=== PATIENT | male | born 1990 | race Two or more races ===

== ENCOUNTER 2023-12-16 14:07 | Inpatient (IN) ==
[2023-12-16] MEDS: HYDROmorphone INJ 1 MG/ML SYRINGE ONE (14:24)
[2023-12-16 14:43] LABS: iSTAT Creatinine 2.9 mg/dl (0.6-1.3); iSTAT Hemoglobin 18.7 g/dl (14.0-18.0); iSTAT Ionized Calcium 1.15 mmol/l (1.12-1.32); iSTAT Potassium 3.6 mmol/L (3.3-5.0)
[2023-12-16] MEDS: LACTATED RINGER'S 1,000 ML IV ONE ×2 (14:47→15:41)
[2023-12-16] MEDS: SODIUM CHLORIDE 0.9% 1,000 ML IV ONE (14:47)
[2023-12-16] MEDS: MAGNESIUM SULFATE / D5W 1 GM/100 ML BAG IV SCH (14:49)
[2023-12-16] MEDS: HYDROmorphone INJ 1 MG/ML SYRINGE IV STA (15:00)
--- NOTE | 2023-12-16 15:18 | Emergency Department Note ---
Impression & Plan Exertional heat stroke, Hypercalcemia, PAYTON (acute kidney injury), Dehydration ED Provider Note NAME: DANIEL HAWKINS AGE: 33 SEX: M : 1990 ARRIVES VIA: Walk-In INFORMANT: Patient, ED PROVIDER(S): Jimmy Doty MD CHIEF COMPLAINT: Trauma alert HPI: This is a 33-year-old male presenting as suspected trauma alert. Patient Urdu-speaking only is [place] by a friend who also does not speak Romansh. 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 He was diaphoretic, moaning in pain. Bedside fast was performed showing no intra-abdominal fluid, pneumothorax or pericardial effusion. Shortly afterwards, seismic interpreter service was available and was found the patient did not actually fall off a roof. He had no trauma and has no traumatic injuries. He notes he has been outside all day working in the extreme heat. He noted he felt cramping in his entire body that so he came to the ER. He was able to get off the roof when he for started noticing cramping and did not fall at all today ROS: See above HPI for pertinent positives & negatives. A total of 10 systems reviewed and were otherwise negative. PHYSICAL EXAMINATION: General: Extreme discomfort due to pain, extremely diaphoretic Head: Normocephalic and atraumatic Eyes: Normal inspection, extraocular muscles intact Ear, nose, throat: Normal external exam Neck: Normal range of motion Respiratory: lungs clear to auscultation bilaterally Cardiovascular: Tachycardic, regular rate/rhythm, no murmur GI: soft, nontender, no guarding or rebound Extremities: Bilateral lower extremity tenderness, muscle spasm, 2+ pulses in all extremities Neuro: The patient awake and alert, appropriately conversive, no focal deficits, symmetric faces Skin: Warm, dry, and intact MEDICAL DECISION MAKING: This is a 33-year male presenting extremis. Patient is decided as a trauma alert, later discovered patient was working outside all day with body cramps. He is slightly hypothermic to 38.2. He was initially tachycardic into the 150s. Patient was started on 1 L normal saline, 1 L LR. He was given 1 mg of Dilaudid. -E fast performed myself showing no intra-abdominal fluid, pneumothorax or pericardial effusion -Patient notes significant proved in symptoms after a few minutes. His heart rate goes from 150 down to 90s. Blood pressures 170s. He notes his legs are starting feel better. He is no longer writhing in the stretcher. Diaphoresis improving. -Patient continued reevaluated and notes only improving symptoms, now heart rates in the 80s, resting comfortably, sleeping, normal oxygen level at this time. No longer tachypneic -Patient lactic acid was significant elevated over 13. -Patient mentioned that he took 2 pills prior to working because he felt "dizzy ". He cannot, what this is and is asking his friends to take a picture at home so that they can show us what it is. -Patient is reassessed with only improvement in symptoms. Now he states he feels much relaxed rate is down to the 70s/80s, no current pain. -Blood work is reviewed showing significant abnormalities including significant PAYTON to 2.8. Leukocytosis is noted to 16.2 with hemoglobin 19.1 concerning for hemoconcentration. Otherwise his electrolytes are abnormal including hypochloremia, significant anion gap over 29. His calcium is significantly elevated at 12.1. -Will continue to give fluids including third liter of fluid at this time. Temperature is downtrending. CK is only 216. -Updated the patient and he is comfortable with admission due to his PAYTON, dehydration Differential diagnosis: Trauma, dehydration, heatstroke, rhabdomyolysis, electro disturbance, hypocalcemia, tetany ER treatment provided: See below Diagnostics interpreted by me: ECG: ECG independently interpreted by me with normal sinus rhythm, rate of 82, normal axis, normal WA, normal QRS, normal QTc, no ST segment elevations consistent with STEMI criteria Cardiac Monitoring: An order was placed for continuous cardiac monitoring. The monitor shows a rate of 141 with sinus tachycardia rhythm. Laboratory studies: As stated above and show below. Imaging studies: See below. Critical Care Note: I have personally spent 61 minutes of critical care time in the direct management of this patient. This includes bedside care, interpretation of diagnostic studies, and testing, discussion with consultants, patient, and family members, and other required patient management activities. This 61 minutes is in excess of all separately billable procedures. Past Med/Surg History Problem List (Updated 12/16/23 @ 17:00 by Jimmy Doty MD) Dehydration (Acute) PYATON (acute kidney injury) (Acute) Hypercalcemia (Acute) Exertional heat stroke (Acute) Social History Smoking Status: Never smoker Preferred Language: Urdu Feels Safe at Home: Yes Allergies Allergies Allergy/AdvReac Type Severity Reaction Status Date / Time No Known Allergies Allergy Verified 12/16/23 15:01 Home Meds Home Medications Medication Instructions Recorded Confirmed aspirin-caffeine 500 mg-32.5 mg 2 tab PO DIRECTED PRN Pain 12/16/23 12/16/23 tablet (Back and Body Pain Reliever) Results & Data (ED) Vital Signs Vital Signs - 24 hr 12/16/23 14:30 12/16/23 14:33 12/16/23 14:36 Temperature 38.1 C H Temperature Source Rectal Pulse Rate 111 H 120 H Pulse Rate [Right Finger] Pulse Rate from SpO2 Sensor 112 H Pulse Rhythm [Right Finger] Pulse Strength [Right Finger] Respiratory Rate 24 32 H Respiratory Effort / Characteristics Non-Labored Spontaneous Respiratory Depth Normal Respiratory Pattern Regular Blood Pressure 131/94 170/116 H Blood Pressure [Left Arm] Blood Pressure Mean 106 134 Blood Pressure Mean [Left Arm] Blood Pressure Position [Left Arm] Pulse Oximetry 98 98 Oxygen Delivery Method Room Air Room Air Room Air Sepsis Recent Fever Within 48 Hours No Sepsis New/Unexplained Change in Mental Status N/A Sepsis Action Taken by Nursing Physician Notified 12/16/23 14:47 12/16/23 15:05 12/16/23 15:21 Temperature 36.6 C Temperature Source Oral Pulse Rate 95 H Pulse Rate [Right Finger] 75 Pulse Rate from SpO2 Sensor Pulse Rhythm [Right Finger] Regular Pulse Strength [Right Finger] Normal Respiratory Rate 20 Respiratory Effort / Characteristics Non-Labored Spontaneous Respiratory Depth Normal Respiratory Pattern Regular Blood Pressure Blood Pressure [Left Arm] 141/87 H Blood Pressure Mean Blood Pressure Mean [Left Arm] 105 Blood Pressure Position [Left Arm] Semi-fowlers Pulse Oximetry 99 99 Oxygen Delivery Method Room Air Room Air Sepsis Recent Fever Within 48 Hours Sepsis New/Unexplained Change in Mental Status Sepsis Action Taken by Nursing Laboratory Data 12/16/23 14:26 12/16/23 14:26 Lab Results 12/16/23 12/16/23 12/16/23 Range/Units 14:24 14:26 14:30 WBC 16.42 H (4.8-10.8) K/ul RBC 6.50 H (4.70-6.10) M/uL Hgb 19.1 H (14.0-18.0) g/dl POC Hgb 18.7 H (14.0-18.0) g/dl Hct 55.6 H (42.0-52.0) % POC Hct 55 H (42-52) % MCV 85.5 (80.0-100.0) fL MCH 29.4 (25.0-34.0) pg MCHC 34.4 (32.0-36.0) g/dL RDW Std Deviation 38.1 (36.4-46.3) fL RDW Coeff of Fadia 12.5 (11.5-14.5) % Plt Count 365 (130-400) K/uL MPV 10.7 (9.4-12.4) fL Immature Gran % (Auto) 0.5 % Neut % (Auto) 56.8 % Lymph % (Auto) 32.0 % [place] % (Auto) 9.3 % Eos % (Auto) 0.7 % Baso % (Auto) 0.7 % Neut # (Auto) 9.35 H (1.40-6.50) K/uL Lymph # (Auto) 5.25 H (1.20-3.40) K/uL [place] # (Auto) 1.52 H (0.11-0.59) K/uL Eos # (Auto) 0.11 (0.00-0.50) K/uL Baso # (Auto) 0.11 (0.00-0.20) K/uL Immature Gran # (Auto) 0.08 (0.01-0.20) K/uL POC Sodium 137 (135-144) mmol/L Sodium 139 (136-145) mmol/L POC Potassium 3.6 (3.3-5.0) mmol/L Potassium 3.7 (3.5-5.1) mmol/L POC Chloride 99 L (101-112) mmol/L Chloride 90 L (98-107) mmol/L Carbon Dioxide 20 L (21-32) mmol/L POC Total CO2 19 L (24-31) mmol/L Anion Gap 29 H (3-11) POC Anion Gap 24.0 (16-25) mmol/L POC BUN 23 H (7-18) mg/dl BUN 23 (6-23) mg/dl Creatinine 2.81 H (0.6-1.4) mg/dl POC Creatinine 2.9 H (0.6-1.3) mg/dl Est Cr Clr Drug Dosing 31.9 ml/min Est GFR ( Amer) 32.3 ml/min Est GFR (Non-Af Amer) 27.8 ml/min BUN/Creatinine Ratio 8.2 L (10-20) Glucose 141 H (70-99(Fasting)) mg/dl POC Glucose (other) 150 H (70-99) mg/dl Lactate 13.2 H* (0.4-2.0) mmol/L Calcium 12.1 H* (8.6-10.3) mg/dl POC Ioniz Calcium Kya 1.15 (1.12-1.32) mmol/l Magnesium 2.2 (1.7-2.4) mg/dl Total Bilirubin 1.6 H (0.2-1.0) mg/dl Direct Bilirubin 0.2 (0-0.2) mg/dl AST 50 H (13-39) U/L ALT 41 (7-52) U/L Alkaline Phosphatase 148 H (34-104) U/L Total Creatine Kinase 216 (30-223) U/L Total Protein 10.7 H (6.0-8.3) gm/dl Albumin 6.6 H (3.4-5.0) gm/dl 12/16/23 Range/Units 16:30 WBC (4.8-10.8) K/ul RBC (4.70-6.10) M/uL Hgb (14.0-18.0) g/dl POC Hgb (14.0-18.0) g/dl Hct (42.0-52.0) % POC Hct (42-52) % MCV (80.0-100.0) fL MCH (25.0-34.0) pg MCHC (32.0-36.0) g/dL RDW Std Deviation (36.4-46.3) fL RDW Coeff of Fadia (11.5-14.5) % Plt Count (130-400) K/uL MPV (9.4-12.4) fL Immature Gran % (Auto) % Neut % (Auto) % Lymph % (Auto) % [place] % (Auto) % Eos % (Auto) % Baso % (Auto) % Neut # (Auto) (1.40-6.50) K/uL Lymph # (Auto) (1.20-3.40) K/uL [place] # (Auto) (0.11-0.59) K/uL Eos # (Auto) (0.00-0.50) K/uL Baso # (Auto) (0.00-0.20) K/uL Immature Gran # (Auto) (0.01-0.20) K/uL POC Sodium (135-144) mmol/L Sodium (136-145) mmol/L POC Potassium (3.3-5.0) mmol/L Potassium (3.5-5.1) mmol/L POC Chloride (101-112) mmol/L Chloride (98-107) mmol/L Carbon Dioxide (21-32) mmol/L POC Total CO2 (24-31) mmol/L Anion Gap (3-11) POC Anion Gap (16-25) mmol/L POC BUN (7-18) mg/dl BUN (6-23) mg/dl Creatinine (0.6-1.4) mg/dl POC Creatinine (0.6-1.3) mg/dl Est Cr Clr Drug Dosing ml/min Est GFR ( Amer) ml/min Est GFR (Non-Af Amer) ml/min BUN/Creatinine Ratio (10-20) Glucose (70-99(Fasting)) mg/dl POC Glucose (other) (70-99) mg/dl Lactate 3.2 H* (0.4-2.0) mmol/L Calcium (8.6-10.3) mg/dl POC Ioniz Calcium Kya (1.12-1.32) mmol/l Magnesium (1.7-2.4) mg/dl Total Bilirubin (0.2-1.0) mg/dl Direct Bilirubin (0-0.2) mg/dl AST (13-39) U/L ALT (7-52) U/L Alkaline Phosphatase (34-104) U/L Total Creatine Kinase (30-223) U/L Total Protein (6.0-8.3) gm/dl Albumin (3.4-5.0) gm/dl Administered Medications Discontinued Medications Hydromorphone HCl (Hydromorphone Inj 1 Mg/Ml Syringe) Confirm Administered Dose 1 mg .ROUTE .STK-MED ONE Stop: 12/16/23 14:23 Last Admin: 12/16/23 14:24 Dose: 1 mg Documented By: SEAN Hydromorphone HCl (Hydromorphone Inj 1 Mg/Ml Syringe) 1 mg IV NOW STA Stop: 12/16/23 14:58 Last Admin: 12/16/23 15:00 Dose: Not Given Documented By: SEAN Magnesium Sulfate/Dextrose (Magnesium Sulfate / D5w) 1 gm in 100 mls @ 200 mls/hr IV Q30M ZAIDA Stop: 12/16/23 15:34 Last Infusion: 12/16/23 15:54 Dose: Infused Documented By: Admin: 12/16/23 15:15 Dose: 200 mls/hr Documented By: Infusion: 12/16/23 15:15 Dose: Infused Documented By: Admin: 12/16/23 14:49 Dose: 200 mls/hr Documented By: SEAN Sodium Chloride (Nss) 1,000 mls @ 999 mls/hr IV .Q1H1M ONE Stop: 12/16/23 15:35 Last Infusion: 12/16/23 15:40 Dose: Infused Documented By: Admin: 12/16/23 14:47 Dose: 999 mls/hr Documented By: SEAN Lactated Ringer's (Lr) 1,000 mls @ 999 mls/hr IV .Q1H1M ONE Stop: 12/16/23 15:35 Last Infusion: 12/16/23 15:40 Dose: Infused Documented By: Admin: 12/16/23 14:47 Dose: 999 mls/hr Documented By: SEAN Lactated Ringer's (Lr) 1,000 mls @ 999 mls/hr IV .Q1H1M ONE Stop: 12/16/23 16:40 Last Infusion: 12/16/23 16:43 Dose: Infused Documented By: Admin: 12/16/23 15:41 Dose: 999 mls/hr Documented By: JAIRO Discharge Plan Visit Data Chief Complaint: Trauma Stated Complaint: PAIN ALL OVER, FINGER PAIN ED Provider: Jimmy Doty Discharge Problem: Exertional heat stroke, Hypercalcemia, PAYTON (acute kidney injury), Dehydration Forms Stand Alone Forms: [facility] Prescriptions Prescriptions: No Action Back and Body Pain Reliever 500-32.5 mg Tablet 2 tab PO DIRECTED PRN (Reason: Pain) Referrals Referrals: PCP,NO [Primary Care Provider] -
[2023-12-16 15:23] LABS: BUN Creatinine Ratio 8.2 (10-20); Bilirubin Direct 0.2 mg/dl (0-0.2); Bilirubin,Total 1.6 mg/dl (0.2-1.0); Calcium 12.1 mg/dl (8.6-10.3); Creatinine Clr Calc Pharmacy 31.9 ml/min; Est GFR (African American) 32.3 ml/min; Est GFR (Non-African American) 27.8 ml/min; Magnesium 2.2 mg/dl (1.7-2.4); Potassium 3.7 mmol/L (3.5-5.1); Total Protein 10.7 gm/dl (6.0-8.3)
[2023-12-16 15:39] LABS: Albumin Level 6.6 gm/dl (3.4-5.0)
[2023-12-16 15:59] LABS: Basophils # (auto) 0.11 K/uL (0.00-0.20); Basophils % (auto) 0.7 %; Eosinophils # (auto) 0.11 K/uL (0.00-0.50); Eosinophils % (auto) 0.7 %; Hematocrit (blood only) 55.6 % (42.0-52.0); Hemoglobin 19.1 g/dl (14.0-18.0); Immature Granulocytes # (auto) 0.08 K/uL (0.01-0.20); Immature Granulocytes % (auto) 0.5 %; Lymphocytes # (auto) 5.25 K/uL (1.20-3.40); Mean Corpuscular Hemoglobin 29.4 pg (25.0-34.0); Mean Corpuscular Hgb Conc 34.4 g/dL (32.0-36.0); Mean Corpuscular Volume 85.5 fL (80.0-100.0); Mean Platelet Volume 10.7 fL (9.4-12.4); Monocytes # (auto) 1.52 K/uL (0.11-0.59); Monocytes % (auto) 9.3 %; Neutrophils # (auto) 9.35 K/uL (1.40-6.50); Neutrophils % (auto) 56.8 %; Platelet Count 365 K/uL (130-400); RDW Coefficient of Variation 12.5 % (11.5-14.5); RDW Standard Deviation 38.1 fL (36.4-46.3); White Blood Count 16.42 K/ul (4.8-10.8)
--- NOTE | 2023-12-16 17:25 | History & Physical Report ---
Date of Service December 16, 2023 Assessment & Plan (1) Heat exhaustion: (2) PAYTON (acute kidney injury): (3) Dehydration: (4) Hypercalcemia: (5) SIRS (systemic inflammatory response syndrome): (6) High anion gap metabolic acidosis: (7) Lactic acidosis: Plan This is a 33-year-old male who is Vincentian-speaking who presents to ED secondary to dizziness and muscle cramps. Exertion heat exhaustion PAYTON Dehydration Muscle Spasm Lactic acidosis HAGMA admit to PCU He received 3L of IVF in ED continue NSS + 20meq KCL 150cc/hr repeat labs bmp, vbg, phos, lactic acid, CK at [address] abd/pelvis due to pt c/o periumbilical pain tylenol for mild pain, oxy IR for severe pain avoid nephrotoxic agents, especially ASA containing meds Leukocytosis/Fever -SIRS likely reactive in setting of heat exhaustion blood and urine cultures ordered for completeness hold on antibiotics for now, no clear source Hypercalcemia normal ionized ca, likely in setting of dehydration hold on hypercalcemia work up until repeat bmp results, expect improvement, if no improvement consider work up DVT ppx: SQ Heparin due to decreased mobility in setting of muscle spasm, once ambulatory can d/c FULL CODE PCP: NONE Dispo: admit to PCU Pt was seen and examined in collaboration with Dr. Muñoz, please see addendum A total of 76 minutes was spent coordinating, documenting, and providing care for this patient excluding time spent in the performance of separately billed services. This included personally viewing all current laboratories and imaging studies, medication reconciliation, outpatient chart review, and discussion with specialists. History of Present Illness Chief Complaint: Dizziness and muscle cramps. Primary Care Provider: NO PCP This is a 33-year-old male who is Vincentian-speaking who presents to ED benjamín ortiz to dizziness and muscle cramps. He has a close family member/friend at bedside who helps elicit history. He was working today out in the heat starting at 7 AM and at approximately 10:30 AM became very dizzy and his muscle started spasming. He was complaining of pain in his lower abdomen as well as his legs. He tried taking 2 Excedrin without relief and therefore presented to the ED. He has had similar symptoms in the past requiring him to sit in the shade and they would resolve, but never this severe. He denies chills, sweats, chest pain, sob, n/v or difficulty urinating. He has not ate anything today, but he states he was drinking fluids. In ED initial lab workup revealed a lactic acid of 13.2, anion gap of 29, H&H 19.1 and 55.6, WC 16.4 K, BUN and creatinine of 23 and 2.81, & AST 50. He received 3L of IVF, 1 L of NSS and 2L of LR. Repeat lactic was down to 3.2. bit bender was used during history/physical. Allergies Allergy/AdvReac Type Severity Reaction Status Date / Time No Known Allergies Allergy Verified 12/16/23 15:01 Home Medications Medication Instructions Recorded Confirmed Type aspirin-caffeine 500 mg-32.5 mg 2 tab PO DIRECTED PRN Pain 12/16/23 12/16/23 History tablet (Back and Body Pain Reliever) Past Med/Surg History Problem List (Updated 12/16/23 @ 17:44 by Karen Lieberman PA-C) Lactic acidosis High anion gap metabolic acidosis SIRS (systemic inflammatory response syndrome) Heat exhaustion Dehydration (Acute) PAYTON (acute kidney injury) (Acute) Hypercalcemia (Acute) Exertional heat stroke (Acute) Medical History (Updated 12/16/23 @ 17:44 by Karen Lieberman PA-C) No pertinent past medical history Surgical History (Updated 12/16/23 @ 17:27 by Karen Lieberman PA-C) Hx of appendectomy Family History Mother Hypertension Thyroid disease Social History Smoking Status: Never smoker Hx Alcohol Use: Yes Alcohol type: beer Hx Substance Use: No Preferred Language: Vincentian Communication Ability: only spani Communication Tools: Language Line Auto Radiator Specialist Auto Radiator Specialist Required: Yes and Video Beliefs That Will Affect Care: None marital status: Single Current Living Situation: Family Feels Safe at Home: Yes Safety Concerns: Feels Safe At This Time Review of Systems Review of Systems: All systems reviewed & are unremarkable except as noted in HPI & below Physical Exam Physical Exam: please refer to Dr. Sauceda addendum for physical exam findings. Results & Data Results & Data Vital Signs (Past 12 Hours) Vital Signs Temp Pulse Pulse Resp BP BP Pulse Ox 12/16/23 15:21 36.6 C 75 20 141/87 H 99 12/16/23 15:05 99 12/16/23 14:47 95 H 12/16/23 14:36 12/16/23 14:33 38.1 C H 120 H 32 H 170/116 H 98 12/16/23 14:30 111 H 24 131/94 98 O2 Del Method 12/16/23 15:21 Room Air 12/16/23 15:05 Room Air 12/16/23 14:47 12/16/23 14:36 Room Air 12/16/23 14:33 Room Air 12/16/23 14:30 Room Air Laboratory Results I have independently reviewed and interpreted patient's admitting labs including CBC, CMP, lactate, mag, CK Medications Administered Medication List Discontinued Medications Hydromorphone HCl (Hydromorphone Inj 1 Mg/Ml Syringe) Confirm Administered Dose 1 mg .ROUTE .STK-MED ONE Stop: 12/16/23 14:23 Last Admin: 12/16/23 14:24 Dose: 1 mg Documented By: SEAN Hydromorphone HCl (Hydromorphone Inj 1 Mg/Ml Syringe) 1 mg IV NOW STA Stop: 12/16/23 14:58 Last Admin: 12/16/23 15:00 Dose: Not Given Documented By: SEAN Magnesium Sulfate/Dextrose (Magnesium Sulfate / D5w) 1 gm in 100 mls @ 200 mls/hr IV Q30M [facility] Stop: 12/16/23 15:34 Last Infusion: 12/16/23 15:54 Dose: Infused Documented By: Admin: 12/16/23 15:15 Dose: 200 mls/hr Documented By: Infusion: 12/16/23 15:15 Dose: Infused Documented By: Admin: 12/16/23 14:49 Dose: 200 mls/hr Documented By: SEAN Sodium Chloride (Nss) 1,000 mls @ 999 mls/hr IV .Q1H1M ONE Stop: 12/16/23 15:35 Last Infusion: 12/16/23 15:40 Dose: Infused Documented By: Admin: 12/16/23 14:47 Dose: 999 mls/hr Documented By: KMO Lactated Ringer's (Lr) 1,000 mls @ 999 mls/hr IV .Q1H1M ONE Stop: 12/16/23 15:35 Last Infusion: 12/16/23 15:40 Dose: Infused Documented By: Admin: 12/16/23 14:47 Dose: 999 mls/hr Documented By: KMO Lactated Ringer's (Lr) 1,000 mls @ 999 mls/hr IV .Q1H1M ONE Stop: 12/16/23 16:40 Last Infusion: 12/16/23 16:43 Dose: Infused Documented By: Admin: 12/16/23 15:41 Dose: 999 mls/hr Documented By: CAW ECG Additional Comments: I have independently reviewed and interpreted patient's admitting EKG which revealed: 82 NSR, qtc 434ms COVID-19 Results Results COVID-19 Adm Lab Results: RBC 6.50 M/uL (4.70-6.10) H 12/16/23 WBC 16.42 K/ul (4.8-10.8) H 12/16/23 Hgb 19.1 g/dl (14.0-18.0) H 12/16/23 Hct 55.6 % (42.0-52.0) H 12/16/23 Plt Count 365 K/uL (130-400) 12/16/23 Neutrophils (%) (Auto) 56.8 % 12/16/23 Lymphocytes (%) (Auto) 32.0 % 12/16/23 Monocytes # (Auto) 1.52 K/uL (0.11-0.59) H 12/16/23 Eosinophils # (Auto) 0.11 K/uL (0.00-0.50) 12/16/23 Immature Granulocyte % (Auto) 0.5 % 12/16/23 Neutrophils # (Auto) 9.35 K/uL (1.40-6.50) H 12/16/23 Lymphocytes # (Auto) 5.25 K/uL (1.20-3.40) H 12/16/23 Monocytes # (Auto) 1.52 K/uL (0.11-0.59) H 12/16/23 Eosinophils # (Auto) 0.11 K/uL (0.00-0.50) 12/16/23 Basophils # (Auto) 0.11 K/uL (0.00-0.20) 12/16/23 Immature Granulocyte # (Auto) 0.08 K/uL (0.01-0.20) 4 Na 133 mmol/L (136-145) L 12/16/23 K 3.6 mmol/L (3.5-5.1) 12/16/23 Cl 99 mmol/L (98-107) 12/16/23 CO2 23 mmol/L (21-32) 12/16/23 Anion Gap 11 (3-11) 12/16/23 BUN 18 mg/dl (6-23) 12/16/23 Creatinine 1.18 mg/dl (0.6-1.4) 12/16/23 BUN/Creatinine Ratio 15.3 (10-20) 12/16/23 Glucose Level 106 mg/dl (70-99(Fasting)) H 12/16/23 Ca 8.8 mg/dl (8.6-10.3) 12/16/23 Phosphorus Level 4.1 mg/dl (2.5-4.9) 12/16/23 Total Bilirubin 1.6 mg/dl (0.2-1.0) H 12/16/23 Direct Bilirubin 0.2 mg/dl (0-0.2) 12/16/23 AST/SGOT 50 U/L (13-39) H 12/16/23 ALT/SGPT 41 U/L (7-52) 12/16/23 Alkaline Phosphatase 148 U/L (34-104) H 12/16/23 Total Protein 10.7 gm/dl (6.0-8.3) H 12/16/23 Albumin 6.6 gm/dl (3.4-5.0) H 12/16/23 Total CK 303 U/L (30-223) H 12/16/23 Code Status & VTE Plan Code Status FULL CODE VTE Prophylaxis Plan VTE Prophylaxis will be ordered: Yes
--- NOTE | 2023-12-16 17:36 | Communication Note ---
Date of Service: December 16, 2023 Attending Addendum: Case reviewed with the advanced practitioner. I have personally performed a history and physical examination on the patient. I have reviewed the advanced practitioner's documentation on the date of service referenced in note, and I agree with, and take responsibility for the plan of care. please refer to her notes for full details patient seen and examined, records reviewed by myself as well on exam, patient seen resting in bed, sitting up, friend at the bedside Carbonizer service utilized during interview Patient states he is feeling improved compared to earlier Still having some muscle aches Denies problems with voiding No active chest pain, shortness of breath Does report central abdominal discomfort no other symptoms VS noted and reviewed oriented x 3 , not in distress, speaks in sentences with no effort nor accessory muscle use normal rate, regular rhythm, no murmurs clear breath sounds bilaterally non distended, soft, mild tenderness central abdomen no bipedal edema, erythema, warmth no neuro deficits all labs, imaging noted and reviewed ASSESSMENT AND PLAN Heat exhaustion Tachycardia improving Afebrile Monitor CK level and lactic acid Continue supportive care including vigorous IV fluids Acute kidney injury with metabolic acidosis Lactic acidosis Likely prerenal etiology secondary to poor oral intake, rule out rhabdo CT abdomen pelvis: No renal obstruction Creatinine seems to have normalized after IV fluids initiated in the ER Acidosis also improving Continue IV fluids Monitor closely Monitor CPK levels other diagnoses and plan of care as per advanced practitioner's notes Hammad Muñoz MD
[2023-12-16 18:14] LABS: Base Excess VBG -0.8 mEq/L; HCO3 VBG 24 mmol/L; Oxygen Saturation VBG 94.9 %; PCO2 VBG 37 mmHg (38-50); PO2 VBG 68 mmHg; pH VBG 7.41 (7.36-7.41)
[2023-12-16] MEDS ORDERED: ACETAMINOPHEN 325 MG TAB PO PRN (18:30)
[2023-12-16] MEDS ORDERED: POLYETHYLENE (MIRALAX) 17 GM PACK PO PRN (18:30)
[2023-12-16] MEDS ORDERED: oxyCODONE HCL IR 5 MG TAB (IMMEDIATE RELEASE) PO PRN (18:30)
[2023-12-16] MEDS ORDERED: ONDANSETRON INJ 2 MG/ML 2 ML VIAL IV PRN (18:30)
--- NOTE | 2023-12-16 18:44 | CT Scan Report ---
CT abd pelvis wo con CLINICAL HISTORY: abdominal pain TECHNIQUE: Helical axial images of the abdomen and pelvis were obtained. Automated dose lowering tech niques and/or adjustment according to patient size were utilized for this exam. This exam was perfor med without intravenous contrast. CT DOSE: 566.23 mGy.cm COMPARISON: None available at the time of this dictation. FINDINGS: Lower chest: No acute abnormality. Liver: Hepatic steatosis is noted. Gallbladder and biliary tree: No calcified gallstones. Normal caliber wall. No intra- or extrahepatic biliary ductal dilation. Pancreas: Unremarkable, no focal lesions. Spleen: Unremarkable. Adrenals: Unremarkable. Kidneys and ureters: Unremarkable. Bladder: Diffuse homogeneous wall thickening is seen. Reproductive organs: Unremarkable. Bowel: Unremarkable. Lymph nodes Retroperitoneal: Unremarkable. Pelvic: Unremarkable. Mesenteric: Unremarkable. Peritoneum: Normal. Vessels: Unremarkable. Abdominal wall: Unremarkable. Bones: Degenerative changes in the visualized spine. IMPRESSION: No acute abnormalities. ACT 112: Negative or not required by law. Electronically signed by: Manoj Sagastume M.D. 12/16/2023 6:41 PM
[2023-12-16 19:16] LABS: BUN Creatinine Ratio 15.3 (10-20); Calcium 8.8 mg/dl (8.6-10.3); Creatinine Clr Calc Pharmacy 73.8 ml/min; Est GFR (African American) 92.1 ml/min; Est GFR (Non-African American) 79.5 ml/min; Phosphorus 4.1 mg/dl (2.5-4.9); Potassium 3.6 mmol/L (3.5-5.1)
[2023-12-16] MEDS: NSS + 20MEQ KCL 20 MEQ/1,000 ML BAG IV SCH ×2 (19:19→19:23)
[2023-12-16 19:42] LABS: Appearance Urine Clear (Clear); Bilirubin Urine Negative (Negative); Blood Urine Negative (Negative); Color Urine Yellow; Glucose Urine UA Negative (Negative); Ketones Urine Negative (Negative); Leukocyte Esterase Urine Negative (Negative); Nitrite Urine Negative (Negative); Protein Urine Negative (Negative); Specific Gravity Urine 1.015 (1.000-1.030); Urobilinogen Urine Negative (Negative); pH Urine 6.5 (4.5-7.5)
--- NOTE | 2023-12-16 20:53 | Communication Note ---
Date of Service: December 16, 2023 Repeat BMP reviewed. Cr much improved and back to normal. CK climbed slightly to 303 but Ca normalized. Repeat lactate pending. Will cancel nephro consult. Expect pt may be able to be discharged in a.m. CT a/p w/o abnormality as well. Katerin Lieberman PA-C
[2023-12-16] MEDS: HEPARIN SOD 5,000 UNIT/0.5 ML VIAL SQ SCH (21:22)
[2023-12-17 07:21] LABS: Basophils # (auto) 0.03 K/uL (0.00-0.20); Basophils % (auto) 0.4 %; Eosinophils # (auto) 0.17 K/uL (0.00-0.50); Eosinophils % (auto) 2.5 %; Hematocrit (blood only) 41.9 % (42.0-52.0); Hemoglobin 14.2 g/dl (14.0-18.0); Immature Granulocytes # (auto) 0.03 K/uL (0.01-0.20); Immature Granulocytes % (auto) 0.4 %; Lymphocytes # (auto) 1.79 K/uL (1.20-3.40); Lymphocytes % (auto) 25.9 %; Mean Corpuscular Hemoglobin 29.8 pg (25.0-34.0); Mean Corpuscular Hgb Conc 33.9 g/dL (32.0-36.0); Mean Corpuscular Volume 87.8 fL (80.0-100.0); Mean Platelet Volume 10.4 fL (9.4-12.4); Monocytes % (auto) 10.1 %; Neutrophils # (auto) 4.19 K/uL (1.40-6.50); Neutrophils % (auto) 60.7 %; Platelet Count 209 K/uL (130-400); RDW Coefficient of Variation 12.6 % (11.5-14.5); RDW Standard Deviation 40.8 fL (36.4-46.3); Red Blood Count 4.77 M/uL (4.70-6.10); White Blood Count 6.91 K/ul (4.8-10.8)
[2023-12-17 07:54] LABS: Albumin Level 3.7 gm/dl (3.4-5.0); Calcium 8.2 mg/dl (8.6-10.3); Magnesium 2.1 mg/dl (1.7-2.4); Potassium 4.3 mmol/L (3.5-5.1)
[2023-12-17 08:01] LABS: Albumin Globulin Ratio 1.3 (0.9-2); BUN Creatinine Ratio 23.2 (10-20); Est GFR (African American) 142.6 ml/min; Globulin 2.8 gm/dl (2.5-4.0); Phosphorus 2.7 mg/dl (2.5-4.9); Total Protein 6.5 gm/dl (6.0-8.3)
--- NOTE | 2023-12-17 11:18 | Electrocardiogram Report ---
Test Reason : Blood Pressure : / mmHG Vent. Rate : 082 BPM Atrial Rate : 082 BPM P-R Int : 160 ms QRS Dur : 088 ms QT Int : 372 ms P-R-T Axes : 063 051 022 degrees QTc Int : 434 ms Normal sinus rhythm Normal ECG No previous ECGs available Confirmed by Arsalan Gamino ([id number]) on 12/17/2023 11:17:59 AM Referred By: REFERRED SELF Confirmed By:Arsalan Gamino
--- NOTE | 2023-12-17 13:53 | Hospitalist Progress Note ---
Date of Service December 17, 2023 Assessment & Plan (1) Heat exhaustion: (2) PAYTON (acute kidney injury): (3) Dehydration: (4) Hypercalcemia: (5) SIRS (systemic inflammatory response syndrome): (6) High anion gap metabolic acidosis: (7) Lactic acidosis: Plan This is a 33-year-old male who is Mohawk-speaking who presents to ED secondary to dizziness and muscle cramps. Exertion heat exhaustion Acute Kidney Injury Dehydration Muscle Spasm Lactic acidosis High anion gap metabolic acidosis Increased creatinine kinase He received 3L of IVF in ED, admitting CTAP reviewed, no acute finding. Hemoconcentration/PAYTON/lactic acidosis/anion gap metabolic acidosis resolved. CPK slightly uptrending, CPK in a.m., continue with IV fluid. Monitor for any muscle pain. tylenol for mild pain, oxy IR for severe pain avoid nephrotoxic agents, especially ASA containing meds Leukocytosis/Fever -SIRS likely reactive in setting of heat exhaustion blood and urine cultures ordered for completeness hold on antibiotics for now, no clear source Follow-up on cultures. Hypercalcemia: Noted on admission. normal ionized ca, likely in setting of dehydration resolved with iv hydration. DVT ppx: SQ Heparin due to decreased mobility in setting of muscle spasm, once ambulatory can d/c FULL CODE PCP: NONE Dispo: admit to PCU Admission and Anticipated Discharge Date Admission Date: December 16, 2023 Subjective Patient was lying in bed, on room air, NAD, resting comfortably. Patient reports improvement in pain, reports feeling better, reports eating okay. Physical Exam Physical Exam: GENERAL: Alert and oriented x3. NAD, on RA. HEENT: No pallor, no icterus. Pupils equal, round and reactive to light. Oral mucosa moist. NECK: No JVD, no neck masses. HEART: S1 and S2 heard. Regular rate and rhythm. No murmur, no gallop. RESPIRATORY SYSTEM: Normal AP diameter. No accessory muscle use. No wheezing, no crackles. ABDOMEN: Soft, bowel sounds present, nontender, no distention. CENTRAL NERVOUS SYSTEM: No facial droop. Speech is clear. Obeys simple commands. Moves extremities. EXTREMITIES: No edema, no erythema seen. Results & Data Results & Data Vital Signs (Past 12 Hours) Vital Signs Temp Pulse Pulse Resp BP Pulse Ox O2 Del Method 12/17/23 11:40 36.6 C 72 18 135/71 98 Room Air 12/17/23 08:00 36.5 C 61 20 119/59 L 100 Room Air 12/17/23 05:40 47 L 12/17/23 03:16 36.6 C 55 L 18 123/71 100 Room Air
[2023-12-17] MEDS: SODIUM CHLORIDE 0.9% 1,000 ML IV SCH (15:28)
[2023-12-18 07:36] LABS: Hematocrit (blood only) 41.7 % (42.0-52.0); Mean Corpuscular Hemoglobin 29.4 pg (25.0-34.0); Mean Corpuscular Hgb Conc 33.6 g/dL (32.0-36.0); Mean Corpuscular Volume 87.6 fL (80.0-100.0); Mean Platelet Volume 10.3 fL (9.4-12.4); Platelet Count 207 K/uL (130-400); RDW Coefficient of Variation 12.4 % (11.5-14.5); RDW Standard Deviation 39.8 fL (36.4-46.3); Red Blood Count 4.76 M/uL (4.70-6.10); White Blood Count 5.71 K/ul (4.8-10.8)
[2023-12-18 07:54] LABS: BUN Creatinine Ratio 14.8 (10-20); Calcium 8.4 mg/dl (8.6-10.3); Creatinine Clr Calc Pharmacy 148.2 ml/min; Est GFR (Non-African American) 129.4 ml/min; Magnesium 1.7 mg/dl (1.7-2.4); Phosphorus 2.7 mg/dl (2.5-4.9); Potassium 3.8 mmol/L (3.5-5.1)
--- NOTE | 2023-12-18 13:19 | Discharge Summary ---
Date of Service December 18, 2023 Admission HPI Per Admitting Provider This is a 33-year-old male who is Lao-speaking who presents to ED secondary to dizziness and muscle cramps. He has a close family member/friend at bedside who helps elicit history. He was working today out in the heat starting at 7 AM and at approximately 10:30 AM became very dizzy and his muscle started spasming. He was complaining of pain in his lower abdomen as well as his legs. He tried taking 2 Excedrin without relief and therefore presented to the ED. He has had similar symptoms in the past requiring him to sit in the shade and they would resolve, but never this severe. He denies chills, sweats, chest pain, sob, n/v or difficulty urinating. He has not ate anything today, but he states he was drinking fluids. In ED initial lab workup revealed a lactic acid of 13.2, anion gap of 29, H&H 19.1 and 55.6, WC 16.4 K, BUN and creatinine of 23 and 2.81, & AST 50. He received 3L of IVF, 1 L of NSS and 2L of LR. Repeat lactic was down to 3.2. lang interpreter was used during history/physical. Admission Exam Per Admitting Provider VS noted and reviewed oriented x 3 , not in distress, speaks in sentences with no effort nor accessory muscle use normal rate, regular rhythm, no murmurs clear breath sounds bilaterally non distended, soft, mild tenderness central abdomen no bipedal edema, erythema, warmth no neuro deficits Principal Diagnosis Heat exhaustion, PAYTON, high anion gap metabolic acidosis due to lactic acidosis, hypercalcemia , dehydration Discharge Exam General: Lying comfortably in bed, not in distress, on room air HEENT: EOMI, DES, MMM Chest: Clear breath sounds bilaterally, no wheezes or crackles CVS: Regular rate and rhythm, normal heart sounds, no murmur Abdomen: Soft, non tender, not distended, normal bowel sounds Neuro: Awake, alert, oriented, conversing well, non focal Extremities: No cyanosis, clubbing or edema Discharge Data Allergies Allergy/AdvReac Type Severity Reaction Status Date / Time No Known Allergies Allergy Verified 12/16/23 15:01 Consultations 12/16/23 16:47 ED Decision to Admit Stat Ordered Studies 12/16/23 17:08 CT Abd and Pelvis [CT abd pelvis wo con] Stat Laboratory Results WBC 5.71 K/ul (4.8-10.8) 12/18/23 06:42 RBC 4.76 M/uL (4.70-6.10) 12/18/23 06:42 Hgb 14.0 g/dl (14.0-18.0) 12/18/23 06:42 POC Hgb 18.7 g/dl (14.0-18.0) H 12/16/23 14:30 Hct 41.7 % (42.0-52.0) L 12/18/23 06:42 POC Hct 55 % (42-52) H 12/16/23 14:30 MCV 87.6 fL (80.0-100.0) 12/18/23 06:42 MCH 29.4 pg (25.0-34.0) 12/18/23 06:42 MCHC 33.6 g/dL (32.0-36.0) 12/18/23 06:42 RDW Std Deviation 39.8 fL (36.4-46.3) 12/18/23 06:42 RDW Coeff of Fadia 12.4 % (11.5-14.5) 12/18/23 06:42 Plt Count 207 K/uL (130-400) 12/18/23 06:42 MPV 10.3 fL (9.4-12.4) 12/18/23 06:42 Immature Gran % (Auto) 0.4 % 12/17/23 06:37 Neut % (Auto) 60.7 % 12/17/23 06:37 Lymph % (Auto) 25.9 % 12/17/23 06:37 [place] % (Auto) 10.1 % 12/17/23 06:37 Eos % (Auto) 2.5 % 12/17/23 06:37 Baso % (Auto) 0.4 % 12/17/23 06:37 Neut # (Auto) 4.19 K/uL (1.40-6.50) 12/17/23 06:37 Lymph # (Auto) 1.79 K/uL (1.20-3.40) 12/17/23 06:37 [place] # (Auto) 0.70 K/uL (0.11-0.59) H 12/17/23 06:37 Eos # (Auto) 0.17 K/uL (0.00-0.50) 12/17/23 06:37 Baso # (Auto) 0.03 K/uL (0.00-0.20) 12/17/23 06:37 Immature Gran # (Auto) 0.03 K/uL (0.01-0.20) 12/17/23 06:37 VBG pH 7.41 (7.36-7.41) 12/16/23 18:00 VBG pCO2 37 mmHg (38-50) L 12/16/23 18:00 VBG pO2 68 mmHg 12/16/23 18:00 VBG HCO3 24 mmol/L 12/16/23 18:00 VBG O2 Saturation 94.9 % 12/16/23 18:00 VBG Base Excess -0.8 mEq/L 12/16/23 18:00 POC Sodium 137 mmol/L (135-144) 12/16/23 14:30 Sodium 136 mmol/L (136-145) 12/18/23 06:42 POC Potassium 3.6 mmol/L (3.3-5.0) 12/16/23 14:30 Potassium 3.8 mmol/L (3.5-5.1) 12/18/23 06:42 POC Chloride 99 mmol/L (101-112) L 12/16/23 14:30 Chloride 107 mmol/L (98-107) 12/18/23 06:42 Carbon Dioxide 22 mmol/L (21-32) 12/18/23 06:42 POC Total CO2 19 mmol/L (24-31) L 12/16/23 14:30 Anion Gap 7 (3-11) 12/18/23 06:42 POC Anion Gap 24.0 mmol/L (16-25) 12/16/23 14:30 POC BUN 23 mg/dl (7-18) H 12/16/23 14:30 BUN 9 mg/dl (6-23) 12/18/23 06:42 Creatinine 0.61 mg/dl (0.6-1.4) 12/18/23 06:42 POC Creatinine 2.9 mg/dl (0.6-1.3) H 12/16/23 14:30 Est Cr Clr Drug Dosing 148.2 ml/min 12/18/23 06:42 Est GFR ( Amer) 150.0 ml/min 12/18/23 06:42 Est GFR (Non-Af Amer) 129.4 ml/min 12/18/23 06:42 BUN/Creatinine Ratio 14.8 (10-20) 12/18/23 06:42 Glucose 94 mg/dl (70-99(Fasting)) 12/18/23 06:42 POC Glucose (other) 150 mg/dl (70-99) H 12/16/23 14:30 Lactate 2.7 mmol/L (0.4-2.0) H* 12/16/23 20:30 Calcium 8.4 mg/dl (8.6-10.3) L 12/18/23 06:42 POC Ioniz Calcium Kya 1.15 mmol/l (1.12-1.32) 12/16/23 14:30 Phosphorus 2.7 mg/dl (2.5-4.9) 12/18/23 06:42 Magnesium 1.7 mg/dl (1.7-2.4) 12/18/23 06:42 Total Bilirubin 1.0 mg/dl (0.2-1.0) D 12/17/23 06:37 Direct Bilirubin 0.2 mg/dl (0-0.2) 12/16/23 14:26 AST 37 U/L (13-39) 12/17/23 06:37 ALT 24 U/L (7-52) 12/17/23 06:37 Alkaline Phosphatase 84 U/L (34-104) 12/17/23 06:37 Total Creatine Kinase 209 U/L (30-223) 12/18/23 06:42 Total Protein 6.5 gm/dl (6.0-8.3) D 12/17/23 06:37 Albumin 3.7 gm/dl (3.4-5.0) 12/17/23 06:37 Globulin 2.8 gm/dl (2.5-4.0) 12/17/23 06:37 Albumin/Globulin Ratio 1.3 (0.9-2) 12/17/23 06:37 Urine Color Yellow 12/16/23 19:24 Urine Appearance Clear (Clear) 12/16/23 19:24 Urine pH 6.5 (4.5-7.5) 12/16/23 19:24 Ur Specific [place] 1.015 (1.000-1.030) 12/16/23 19:24 Urine Protein Negative (Negative) 12/16/23 19:24 Urine Glucose (UA) Negative (Negative) 12/16/23 19:24 Urine Ketones Negative (Negative) 12/16/23 19:24 Urine Blood Negative (Negative) 12/16/23 19:24 Urine Nitrite Negative (Negative) 12/16/23 19:24 Urine Bilirubin Negative (Negative) 12/16/23 19:24 Urine Urobilinogen Negative (Negative) 12/16/23 19:24 Ur Leukocyte Esterase Negative (Negative) 12/16/23 19:24 Impressions Abdomen/Pelvis CT 12/16/23 17:08 CT abd pelvis wo con CLINICAL HISTORY: abdominal pain TECHNIQUE: Helical axial images of the abdomen and pelvis were obtained. Automated dose lowering techniques and/or adjustment according to patient size were utilized for this exam. This exam was performed without intravenous contrast. CT DOSE: 566.23 mGy.cm COMPARISON: None available at the time of this dictation. FINDINGS: Lower chest: No acute abnormality. Liver: Hepatic steatosis is noted. Gallbladder and biliary tree: No calcified gallstones. Normal caliber wall. No intra- or extrahepatic biliary ductal dilation. Pancreas: Unremarkable, no focal lesions. Spleen: Unremarkable. Adrenals: Unremarkable. Kidneys and ureters: Unremarkable. Bladder: Diffuse homogeneous wall thickening is seen. Reproductive organs: Unremarkable. Bowel: Unremarkable. Lymph nodes Retroperitoneal: Unremarkable. Pelvic: Unremarkable. Mesenteric: Unremarkable. Peritoneum: Normal. Vessels: Unremarkable. Abdominal wall: Unremarkable. Bones: Degenerative changes in the visualized spine. IMPRESSION: No acute abnormalities. ACT 112: Negative or not required by law. Electronically signed by: Manoj Sagastume M.D. 12/16/2023 6:41 PM Hospital Course (1) Heat exhaustion: (2) PAYTON (acute kidney injury): (3) Dehydration: (4) Hypercalcemia: (5) SIRS (systemic inflammatory response syndrome): (6) High anion gap metabolic acidosis: (7) Lactic acidosis: Plan This is a 33-year-old male who is Lao-speaking who presents to ED secondary to dizziness and muscle cramps. Patient was diagnosed with heat exhaustion with dehydration, PAYTON, Hypercalcemia, leukocytosis, high anion gap metabolic acidosis with lactic acidosis along with increased CK. His CT abdomen pelvis did not show any abnormality. His symptoms and laboratory abnormalities have completely resolved with IV fluid hydration. Denies any more muscle cramps or other symptoms. He is back to normal. He is anxious to go home. I saw and examined at bedside with help of lang interpreter over iPad. 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 he does not have any other medical condition and does not have a PCP. Recommended to get a PCP, which he said he will. He is comfortable and stable for discharge home. Exertion heat exhaustion- resolved Acute Kidney Injury- resolved Dehydration- resolved Hypercalcemia- resolved Muscle Spasm High anion gap metabolic acidosis- resolved Increased creatinine kinase- resolved Leukocytosis- likely reactive. Resolved without need for any antibiotics. Culture negative. Total Time Total Time Spent Total Time Spent (In Minutes): 35 Discharge Plan Discharge Items Patient Disposition: Home - Self-Care Reason For Visit: PAYTON, DEHYDRATION Discharge Diagnosis: Heat exhaustion, PAYTON, high anion gap metabolic acidosis due to lactic acidosis, hypercalcemia , dehydration Activity: Resume your previous activity Non-emergency contact: Primary Care Provider Call non-emergency contact if: you have any medication questions and your symptoms worsen Follow-up/Referrals: PCP,NO [Primary Care Provider] - (As we discussed, please call [facility] at [phone] to set up with a family doctor. ) Diet: Regular Addtl Attending Provider Instructions: Your symptoms were due to dehydration. Please keep yourself hydrated. Pending Studies at Discharge: No Stand-Alone Forms: My [facility] [place], Work/School Release, Smoking Cessation Medications and DC Order Prescriptions: Continued Back and Body Pain Reliever 500-32.5 mg Tablet 2 tab PO DIRECTED PRN (Reason: Pain) Discharge Orders: Discharge Order (Routine); Ordered 12/18/23 Ordered By: Kyler Morrell Admission Data Admit Date/Time: 12/16/23 16:36 Attending Provider: Kyler Morrell Admit Provider: Hammad Muñoz Primary Care Provider: PCP,NO Other Providers: Hammad Muñoz Other Interventions: Discharge Summary Assessment (RN) Last Done: 12/18/23 10:30
== END 2023-12-18 12:18 | disposition home or self-care (01) | DRG 923 ==
LOC: ED 14:07 → 2S 16:36 → SUATTDRO 16:36 → 2S 18:10